=== PATIENT | female | born 1980 | race Caucasian/White ===

== ENCOUNTER 2016-12-07 17:54 | Emergency (ER) | payer OTHER ==
--- NOTE | 2016-12-07 18:06 | PDOC ---
Rapid Medical Evaluation Time Seen by Provider: 12/07/16 18:01 Medical Evaluation: Allergies Allergy/AdvReac Type Severity Reaction Status Date / Time No Known Allergies Allergy Verified 11/03/15 16:18 12/07/16 18:25 36 yo F presents c/o B/L eye irritation. Pt slept with her disposable contact lenses on last evening and awoke with discomfort. Unk last tetanus.
[2016-12-07 18:28] VITALS: BP 143/81; PULSE 84; TEMP 98.1; BMI 28.3
[2016-12-07] MEDS ORDERED: FLUORESCEIN NA 1 EA STRIP ONE ×3 (19:06→19:14)
--- NOTE | 2016-12-07 19:09 | PDOC ---
History of Present Illness - General Chief Complaint: Eye Problem Stated Complaint: EYE PROBLEM Time Seen by Provider: 12/07/16 18:01 History Source: Patient - History of Present Illness Timing/Duration: other (this am) Past History - Past Medical History Allergies/Adverse Reactions: Allergies Allergy/AdvReac Type Severity Reaction Status Date / Time No Known Allergies Allergy Verified 12/07/16 18:25 Home Medications: Ambulatory Orders Ciprofloxacin 0.3% Eye Drops [Ciloxan 0.3% Eye Drops -] 1 drop OU ASDIR #1 bottle 12/07/16 Ibuprofen [Motrin -] 800 mg PO Q6H #30 tablet 12/07/16 Other medical history: none - Psycho/Social/Smoking Cessation Hx Anxiety: No Suicidal Ideation: No Smoking History: Never smoked Have you smoked in the past 12 months: No Information on smoking cessation initiated: No Hx Alcohol Use: No Drug/Substance Use Hx: No Substance Use Type: Marijuana Review of Systems - Review of Systems HEENTM: Yes: Eye Pain, Blurred Vision. No: Tearing, Double Vision *Physical Exam - Vital Signs Last Vital Signs Temp Pulse Resp BP Pulse Ox 98.1 F 84 18 143/81 100 12/07/16 18:26 12/07/16 18:26 12/07/16 18:26 12/07/16 18:26 12/07/16 18:26 - Physical Exam Comments: 12/07/16 19:09 Pt sitting in chair w/ eyes closed General Appearance: Yes: Appropriately Dressed, Mild Distress HEENT: positive: Normal Voice, Other (no conjunctival erythema and no fb on lid eversion, no optake on jarquin lamp, VA 20/20 OD/OS/OU) Neck: positive: Supple Respiratory/Chest: negative: Respiratory Distress Integumentary: positive: Dry, Warm Neurologic: positive: Fully Oriented, Alert, Normal Mood/Affect Medical Decision Making - Medical Decision Making 12/07/16 19:07 36-year-old female, denies any past medical history, here with bilateral eye pain and blurry vision after sleeping in her disposable contact lens last night. Denies photophobia, tearing, discharge or foreign body sensation. Does not remember last tetanus vaccination. No uptake on jarquin lamp and VA intact. Will dc w/ ciprofloxin drops and pain control. Pt instructed to discard old lens and not to wear new lens until sxs have totally resolved and to refrain from sleeping in lens in the future 12/07/16 19:25 *DC/Admit/Observation/Transfer Diagnosis at time of Disposition: Eye pain Qualifiers: Laterality: bilateral Qualified Code(s): H57.13 - Ocular pain, bilateral - Discharge Dispostion Disposition: HOME Condition at time of disposition: Improved - Prescriptions Prescriptions: Ciprofloxacin 0.3% Eye Drops [Ciloxan 0.3% Eye Drops -] 1 drop OU ASDIR #1 bottle Ibuprofen [Motrin -] 800 mg PO Q6H #30 tablet - Patient Instructions Additional Instructions: Use medication as instructed and return to ER for worsening of symptoms. Please throw out contact lens and refrain from using new ones until symptoms have totally resolved. Also refrain from sleeping with contact lens in the future - Post Discharge Activity Work/School Note: Back to Work
[2016-12-07] MEDS ORDERED: IBUPROFEN 400 MG TABLET (FP) PO ONE ×2 (19:19→19:23)
== END 2016-12-07 19:46 | disposition home or self-care (01) ==
LOC: JERFT 17:54
DX: H57.13 Ocular pain, bilateral (principal)
CPT/HCPCS: 99281-25

== ENCOUNTER 2023-02-18 18:46 | Emergency (ER) | payer OTHER ==
[2023-02-18 18:54] VITALS: PULSE 83; RESP 17; BMI 24.9
[2023-02-18 20:14] LABS: BASO % 0.5 % (0-2.0); EOS % 0.3 % (0-4.5); HEMATOCRIT 25.1 % (32.4-45.2); HEMOGLOBIN 7.7 GM/dL (10.7-15.3); LYMPH % 26.3 % (8-40); MCH 20.4 pg (25.7-33.7); MCHC 30.5 g/dl (32.0-36.0); MEAN CELL VOLUME 66.9 fl (80-96); MEAN PLT VOLUME 8.8 fl (7.5-11.1); MONO % 6.7 % (3.8-10.2); NEUT % 66.2 % (42.8-82.8); PLATELET COUNT 251 10^3/uL (134-434); RBC 3.75 M/mm3 (3.60-5.2); RDW 19.1 % (11.6-15.6); WHITE BLOOD COUNT 9.5 K/mm3 (4.0-10.0)
[2023-02-18 20:32] LABS: POTASSIUM 3.6 mmol/L (3.5-5.1)
[2023-02-18 20:34] LABS: CALCIUM 8.6 mg/dL (8.5-10.1)
[2023-02-18 20:35] LABS: ALBUMIN 3.6 g/dl (3.4-5.0); BLOOD UREA NITROGEN 7.3 mg/dL (7-18)
[2023-02-18 20:38] LABS: CREATININE 0.6 mg/dL (0.55-1.3)
[2023-02-18 20:39] LABS: BILIRUBIN,TOTAL 0.4 mg/dL (0.2-1); TOT PROT 7.1 g/dl (6.4-8.2)
[2023-02-18 21:00] LABS: ANISOCYTOSIS 2+; MACROCYTOSIS 1+; OVALOCYTE 1+; ROULEAU 1+; TEAR DROP CELLS 1+
[2023-02-18 22:31] VITALS: BP 128/79
== END 2023-02-18 22:30 | disposition home or self-care (01) ==
LOC: JER 18:46
DX: D25.9 Leiomyoma of uterus, unspecified (principal); D64.9 Anemia, unspecified
CPT/HCPCS: 36415; 74177-TC; 80053; 83690; 84703; 85025; 99285-25; Q9967